=== PATIENT | female | born 1965 | race Caucasian/White ===

== ENCOUNTER 2016-05-25 11:47 | Outpatient (CLI) ==
[2016-02-01 12:28] VITALS: BMI 38.4
[2016-05-25 12:29] LABS: FLU INTERNAL QC INTERNAL QC VALID; RAPID FLU A NEGATIVE (NEGATIVE); RAPID FLU B NEGATIVE (NEGATIVE)
== END 2016-05-25 11:48 | disposition home or self-care (01) ==
LOC: LAB 11:47
PROVIDERS: ATTEND Nurse Practitioner Family
DX: J02.9 Acute pharyngitis, unspecified (principal); R50.9 Fever, unspecified; R68.83 Chills (without fever)
CPT/HCPCS: 87651; 87804; 87880

== ENCOUNTER 2016-09-04 16:38 | Outpatient (CLI) ==
[2016-02-01 12:28] VITALS: BMI 38.4
== END 2016-09-04 16:39 | disposition home or self-care (01) ==
LOC: AMBL 16:38
PROVIDERS: ATTEND Internal Medicine
DX: I10 Essential (primary) hypertension (principal); R53.1 Weakness; R51 Headache; H53.8 Other visual disturbances

== ENCOUNTER 2016-12-07 08:38 | Outpatient (CLI) ==
[2016-02-01 12:28] VITALS: BMI 38.4
[2016-12-07 08:57] LABS: BASOPHILS % (AUTO) 0.6 % (0.0-3.0); EOSINOPHILS # (AUTO) 0.1 K/ul (0.0-0.7); EOSINOPHILS % (AUTO) 1.3 % (0.0-7.0); HEMATOCRIT 38.9 % (37.0-47.0); HEMOGLOBIN 13.4 g/dl (12.0-16.0); IMMATURE GRANULOCYTE % (AUTO) 0.2 % (0.0-5.0); LYMPHOCYTES # (AUTO) 2.1 K/uL (0.60-3.4); LYMPHOCYTES % (AUTO) 39.1 (10.0-50.0); MEAN CORPUSCULAR HEMOGLOBIN 32.8 pg (27.0-31.0); MEAN CORPUSCULAR HGB CONC 34.4 (31.8-35.4); MEAN CORPUSCULAR VOLUME 95.1 fl (81.0-99.0); MONOCYTES # (AUTO) 0.5 K/uL (0.4-2.0); MONOCYTES % (AUTO) 9.6 (0-10); NEUTROPHILS # (AUTO) 2.6 K/ul (2.0-6.9); NEUTROPHILS % (AUTO) 49.2; PLATELET COUNT 200 10^3/uL (140-440); RED BLOOD COUNT 4.09 10^6/ul (4.20-5.40); WHITE BLOOD COUNT 5.29 K/ul (4.6-10.2)
[2016-12-07 09:40] LABS: ALBUMIN 3.7 g/dL (3.4-5.0); ALBUMIN/GLOBULIN RATIO 1.06; BILIRUBIN,TOTAL 0.62 mg/dL (0.00-1.20); BUN/CREATININE RATIO 13.04; CALCIUM 9.4 mg/dL (8.2-10.2); CHOL/HDL RATIO 4.6 (4.5-5.5); CREATININE 0.69 mg/dL (0.60-1.30); TOTAL PROTEIN 7.2 g/dL (6.4-8.2)
== END 2016-12-07 08:39 | disposition home or self-care (01) ==
LOC: LAB 08:38
PROVIDERS: ATTEND Nurse Practitioner Family
DX: I10 Essential (primary) hypertension (principal); E78.5 Hyperlipidemia, unspecified; E03.9 Hypothyroidism, unspecified
CPT/HCPCS: 36415; 80053; 80061; 84443; 85025

== ENCOUNTER 2016-12-10 15:25 | Outpatient (CLI) ==
[2016-02-01 12:28] VITALS: BMI 38.4
[2016-12-11 07:18] LABS: C-REACTIVE PROTEIN 0.9 mg/L (0.0-4.9); RHEUMATOID ARTHRITIS FACTOR < 10.0 IU/mL (0.0-13.9)
[2016-12-11 13:15] LABS: ANTI-NUCLEAR ANTIBODY SCREEN Positive (Negative)
== END 2016-12-10 15:26 | disposition home or self-care (01) ==
LOC: LAB 15:25
PROVIDERS: ATTEND Nurse Practitioner Family
DX: M25.50 Pain in unspecified joint (principal)
CPT/HCPCS: 36415; 86038; 86140; 86430

== ENCOUNTER 2016-12-31 13:03 | Outpatient (CLI) ==
[2016-02-01 12:28] VITALS: BMI 38.4
--- NOTE | 2016-12-31 13:31 | DI ---
EXAM: RIGHT ELBOW HISTORY: Right elbow pain FINDINGS: Right elbow three-view. Bone and joint structures appear normal. There is no joint dislo cation or effusion. No fracture is identified. Bone density and soft tissues are within normal limi ts. IMPRESSION: Findings within normal limits.
--- NOTE | 2016-12-31 14:15 | DI ---
Exam: Two x-rays of the thoracic spine. Comparison: Two-view chest x-ray performed on 05/03/2014. Reason for exam: Pain in thoracic spine. FINDINGS: No obvious fracture or listhesis. Multilevel degenerative disease is seen with anterior o steophyte formation. There is a normal appearing thoracic kyphotic curve. Impression: 1. No acute fracture or listhesis in the thoracic spine. 2. Multilevel degenerative disease with intervertebral body disc space height narrowing and osteophy te formation
== END 2016-12-31 13:04 | disposition home or self-care (01) ==
LOC: RAD 13:03
PROVIDERS: ATTEND Nurse Practitioner Family
DX: M25.521 Pain in right elbow (principal); S59.901A Unspecified injury of right elbow, initial encounter; M54.6 Pain in thoracic spine; I10 Essential (primary) hypertension; R07.9 Chest pain, unspecified
CPT/HCPCS: 93005; 93010

== ENCOUNTER 2017-01-03 12:14 | Outpatient (CLI) ==
[2016-02-01 12:28] VITALS: BMI 38.4
--- NOTE | 2017-01-04 05:50 | MRI ---
EXAM: MRI thoracic spine without IV contrast. DATE: 01/03/2017. HISTORY: Thoracic spine degenerative disc disease. Right lower back and right-sided pain. TECHNIQUE: Sagittal and axial T1W and T2W sequences of the thoracic spine along with sagittal IR and coronal T2W sequences were obtained using 1.2 Mary magnet. No IV contrast. COMPARISON: T-spine series 01/10/2017. FINDINGS: There are 12 thoracic vertebra with paired ribs. No thoracic scoliosis is evident. No ac [place] T-spine fracture, subluxation, osseous malignancy, or jumped facet is demonstrated. Thoracic rosangela tebra are normal in height. Bone marrow signal is normal. Tiny osteophytes are seen at several mid thoracic vertebra. Intervertebral discs are normal in height. Conus medullaris appears to terminate near L2. No cord edema, syrinx, myelomalacia, or neoplasm is demonstrated. No thyroid abnormality is detected. Trachea, mainstem bronchi, thoracic esophagus and thoracic aorta are unremarkable. No mediastinal lymphadenopathy, hilar lymphadenopathy, pneumonia, lung mass, or p leural effusion is demonstrated. Visible portions of the liver, gallbladder, spleen, adrenal glands, and kidneys reveal no malignancy. Segmental analysis: C5-6: Sagittal images demonstrate small posterior disc/osteophyte complex flattening the cord anteri gris and causing moderate central canal stenosis. C6-7: Minor posterior disc bulge does not cause cord compression or central stenosis. C7-T1: Normal. T1-2: Normal. T2-3: Normal. T3-4: Normal. T4-5: Normal, except for minor right frontal narrowing due to mild right facet arthropathy. T5-6: Normal. T6-7: Small left paracentral disc protrusion (1.8 mm AP by 8 mm transverse) does not contact the cor d at rest; however, the cord is slightly flattened anteriorly. Canal is 10.8 mm AP. Each foramen is patent. T7-8: Minimal posterior disc bulge does not cause cord compression, central stenosis or foraminal st enosis. T8-9: Normal, no disc protrusion or central stenosis. Mild right foraminal stenosis due to mild rig ht facet arthropathy. T9-10: Normal. T10-11: Normal. T11-12: Normal. T12-L1: Normal. IMPRESSIONS: 1. T-spine minor spondylosis, mild facet arthropathy, and minor DDD. 2. Slight cord flattening at T6-7. No syrinx or myelomalacia. 3. No thoracic spine central canal stenosis. 4. Mild foraminal stenoses at T4-5 and T8-9. 5. Moderate central canal stenosis at C5-6.
== END 2017-01-03 12:15 | disposition home or self-care (01) ==
LOC: RAD 12:14
PROVIDERS: ATTEND Nurse Practitioner Family
DX: M51.34 Other intervertebral disc degeneration, thoracic region (principal); M25.70 Osteophyte, unspecified joint

== ENCOUNTER 2017-01-15 09:57 | Outpatient (CLI) ==
[2016-02-01 12:28] VITALS: BMI 38.4
[2017-01-15 12:13] LABS: ERYTHROCYTE SEDIMENTATION RATE 10 mm/hr (0-20); ESR INTERNAL QC INTERNAL QC VALID
[2017-01-16 06:12] LABS: C-REACTIVE PROTEIN 0.9 mg/L (0.0-4.9)
[2017-01-16 15:26] LABS: ANTI-DNA (DS) AB QN 13 IU/mL (0-9)
== END 2017-01-15 09:58 | disposition home or self-care (01) ==
LOC: LAB 09:57
PROVIDERS: ATTEND Internal Medicine Rheumatology
DX: M79.7 Fibromyalgia (principal); I10 Essential (primary) hypertension; R76.8 Other specified abnormal immunological findings in serum
CPT/HCPCS: 36415; 82306; 85651; 86038; 86140

== ENCOUNTER 2017-01-15 16:49 | Emergency (ER) ==
[2017-01-15 17:01] VITALS: BP 213/136; TEMP 98.5; BMI 37.1
[2017-01-15] MEDS ORDERED: TRANDATE IVP STA ×2 (17:06→17:17)
[2017-01-15 17:21] LABS: BASOPHILS % (AUTO) 0.5 % (0.0-3.0); EOSINOPHILS # (AUTO) 0.1 K/ul (0.0-0.7); EOSINOPHILS % (AUTO) 1.8 % (0.0-7.0); HEMOGLOBIN 13.9 g/dl (12.0-16.0); IMMATURE GRANULOCYTE % (AUTO) 0.3 % (0.0-5.0); LYMPHOCYTES % (AUTO) 48.9 (10.0-50.0); MEAN CORPUSCULAR HEMOGLOBIN 33.2 pg (27.0-31.0); MEAN CORPUSCULAR HGB CONC 35.6 (31.8-35.4); MEAN CORPUSCULAR VOLUME 93.1 fl (81.0-99.0); MONOCYTES # (AUTO) 0.7 K/uL (0.4-2.0); MONOCYTES % (AUTO) 11.2 (0-10); NEUTROPHILS # (AUTO) 2.3 K/ul (2.0-6.9); NEUTROPHILS % (AUTO) 37.3; PLATELET COUNT 233 10^3/uL (140-440); RED BLOOD COUNT 4.19 10^6/ul (4.20-5.40); WHITE BLOOD COUNT 6.05 K/ul (4.6-10.2)
[2017-01-15 17:42] LABS: ALANINE AMINOTRANSFERASE 26 U/L (12-78); ALBUMIN 4.5 g/dL (3.4-5.0); ALBUMIN/GLOBULIN RATIO 1.13; ALKALINE PHOSPHATASE 133 U/L (42-98); ANION GAP 16.9; ASPARTATE AMINO TRANSFERASE 26 U/L (15-37); BILIRUBIN,TOTAL 0.49 mg/dL (0.00-1.20); BLOOD UREA NITROGEN 10 mg/dL (7-18); BUN/CREATININE RATIO 13.69; CALCIUM 9.8 mg/dL (8.2-10.2); CARBON DIOXIDE 25 mmol/L (21-32); CHLORIDE 103 mmol/L (98-107); CREATININE 0.73 mg/dL (0.60-1.30); GLUCOSE 90 mg/dL (70-110); POTASSIUM 3.9 mmol/L (3.5-5.10); SODIUM 141 mmol/L (136-145); TOTAL PROTEIN 8.5 g/dL (6.4-8.2)
[2017-01-15 18:05] LABS: BILIRUBIN,URINE Negative (NEGATIVE); KETONES,URINE Negative (NEGATIVE); LEUKOCYTE ESTERASE ,URINE Negative (NEGATIVE); NITRITE,URINE Negative (NEGATIVE); PROTEIN,URINE Negative (NEGATIVE); URINE, BLOOD 2+ (NEGATIVE)
[2017-01-15 18:08] LABS: ADD URINE MICROSCOPIC YES
[2017-01-15 18:09] LABS: BACTERIA,URINE TRACE (NOT PRESENT)
--- NOTE | 2017-01-15 18:12 | ED.PDOC ---
General ED Provider: Dr. SANTOS WOOD Chief Complaint: Hypertension Stated Complaint: hypertension Time Seen by Physician: 17:00 (seen with ophelia and then with oli ) Mode of Arrival: Walk-In Information Source: Patient Exam Limitations: No limitations Primary Care Provider: EMILIANO TONG Nursing and Triage Documentation Reviewed and Agree: Yes Cardiovascular Complaint Exam - Hypertension Complaint/Exam Onset/Duration: today Symptoms Are: Still present Timing: Constant Reported B/P Prior to Arrival: 200/100 Aggravating: Reports: None Alleviating: Reports: None Associated Signs and Symptoms: Denies: Chest pain, Vision changes, Anxiety, Recent stress, Headache, Numbness, Tingling, Weakness, Dizziness, Short of air, Swelling Related History: Reports: Similar episode, Current [place] Inhibitors Related Surgical History: Reports: None Cardiac Risk Factors: Reports: Hypertension Recent Change in Medications: No A/V [place]: No Papilledema Present: No JVD Present: No Carotid Bruit Present: No Femoral Pulses Bounding: No Differential Diagnoses: Hypertension, Renal Disease Quality Indicator For Non-Traumatic Chest Pain/Syncope: EKG Performed Review of Systems - Review Of Systems Constitutional: Reports: No symptoms Eyes: Reports: No symptoms Ears, Nose, Mouth, Throat: Reports: No symptoms Respiratory: Reports: No symptoms Cardiac: Reports: No symptoms GI: Reports: No symptoms : Reports: No symptoms Musculoskeletal: Reports: No symptoms Skin: Reports: No symptoms Neurological: Reports: No symptoms Endocrine: Reports: No symptoms Hematologic/Lymphatic: Reports: No symptoms All Other Systems: Reviewed and Negative Past Medical History - Past Medical History Previously Healthy: No Endocrine: Reports: Hypothyroid Cardiovascular: Reports: Hypertension Respiratory: Reports: None Hematological: Reports: None Gastrointestinal: Reports: None Genitourinary: Reports: None Neuro/Psych: Reports: None Musculoskeletal: Reports: None Cancer: Reports: None Last Menstrual Period: last week - Surgical History General Surgical History: Reports: None - Family History Family History: Reports: None - Social History Smoking Status: Never smoker Hx Substance Use: No Alcohol Screening: None Physical Exam - Physical Exam Appearance: Well-appearing, No pain distress, Well-nourished Eyes: HAIR, EOMI, Conjunctiva clear ENT: Ears normal, Nose normal, Oropharynx normal Respiratory: Airway patent, Breath sounds clear, Breath sounds equal, Respirations nonlabored Cardiovascular: RRR, Pulses normal, No rub, No murmur GI/: Soft, Nontender, No masses, Bowel sounds normal, No Organomegaly Musculoskeletal: Normal strength, ROM intact, No edema, No calf tenderness Skin: Warm, Dry, Normal color Neurological: Sensation intact, Motor intact, Reflexes intact, Cranial nerves intact, Alert, Oriented Psychiatric: Affect appropriate, Mood appropriate Critical Care Note - Critical Care Note Total Time (mins): 0 Course - Course Hematology/Chemistry: 01/15/17 17:10 01/15/17 17:10 Orders, Labs, Meds: Lab Review 01/15/17 01/15/17 01/15/17 17:10 17:10 17:55 WBC 6.05 RBC 4.19 L Hgb 13.9 Hct 39.0 MCV 93.1 MCH 33.2 H MCHC 35.6 H RDW Coeff of Juan 11.9 Plt Count 233 Immature Gran % (Auto) 0.3 Neut % (Auto) 37.3 Lymph % (Auto) 48.9 [place] % (Auto) 11.2 H Eos % (Auto) 1.8 Baso % (Auto) 0.5 Immature Gran # (Auto) 0.0 Neut # 2.3 Lymph # 3.0 [place] # 0.7 Eos # 0.1 Baso # 0.0 Sodium 141 Potassium 3.9 Chloride 103 Carbon Dioxide 25 Anion Gap 16.9 BUN 10 Creatinine 0.73 Estimated GFR (MDRD) 84.00 BUN/Creatinine Ratio 13.69 Glucose 90 Calcium 9.8 Total Bilirubin 0.49 AST 26 ALT 26 Alkaline Phosphatase 133 H Troponin I < 0.0100 Total Protein 8.5 H Albumin 4.5 Globulin 4.0 Albumin/Globulin Ratio 1.13 Urine Color Yellow Urine Clarity Clear Urine pH 6.0 Ur Specific [place] <=1.005 Urine Protein Negative Urine Glucose (UA) Negative Urine Ketones Negative Urine Blood 2+ Urine Nitrite Negative Urine Bilirubin Negative Urine Urobilinogen 0.2 Ur Leukocyte Esterase Negative Urine Microscopic RBC 0-2 Urine Microscopic WBC 0-2 Ur Squamous Epith Cells 0-2 Urine Bacteria Trace Orders Category Date Time Status EKG-(ED ONLY) Stat CARDIO 01/15/17 17:15 Completed ED IV/MEDIPORT/POWERPORT .ONCE EMERGENCY 01/15/17 17:06 Ordered CBC W/ AUTO DIFF Stat LAB 01/15/17 17:06 Ordered COMPREHENSIVE METABOLIC PANEL Stat LAB 01/15/17 17:06 Ordered TROPONIN I Stat LAB 01/15/17 17:06 Ordered URINALYSIS C & S IF INDICATED Stat LAB 01/15/17 17:06 Uncollected 0.9 % Sodium Chloride [Saline Flush] MEDS 01/15/17 17:06 Ordered 1 syr IVF PRN PRN Labetalol HCl [Trandate] MEDS 01/15/17 17:17 Discontinued 10 mg IVP ONCE STA Medications Generic Name Dose Route Start Last Admin Trade Name Freq PRN Reason Stop Dose Admin Sodium Chloride 1 syr 01/15/17 17:06 Saline Flush IVF PRN PRN To flush IV Discontinued Medications Generic Name Dose Route Start Last Admin Trade Name Freq PRN Reason Stop Dose Admin Labetalol HCl 10 mg 01/15/17 17:17 Trandate IVP 01/15/17 17:18 ONCE STA Vital Signs: Temp Pulse Resp BP Pulse Ox 01/15/17 16:52 98.5 F 88 20 213/136 H 98 HERBERT Risk Score HERBERT Risk Score: Risk Score Odds of by 30D 0 0.1 (0.1-0.2) 1 0.3 (0.2-0.3) 2 0.4 (0.3-0.5) 3 0.7 (0.6-0.9) 4 1.2 (1.0-1.5) 5 2.2 (1.9-2.6) 6 3.0 (2.5-3.6) 7 4.8 (3.8-6.1) Departure - Departure Time of Disposition: 18:12 Disposition: HOME SELF-CARE Discharge Problem: Hematuria Hypertension Qualifiers: Hypertension type: unspecified Qualified Code(s): I10 - Essential (primary) hypertension Instructions: Hematuria (ED), Hypertension (ED) Condition: Good Pt referred to PMD for follow-up: Yes Additional Instructions: Please call your Family Physician as soon as possible to schedule a follow-up appointment. you have very small amount of blood in your urine. there should be no blood you must have repeat urine analysis as soon as possible SEE YOUR DOCTOR Allergies/Adverse Reactions: Allergies No Known Allergies Allergy (Verified 01/15/17 16:57) Home Medications: Ambulatory Orders Lisinopril 20 mg PO BID 01/15/17 Disposition Discussed With: Patient
== END 2017-01-15 18:18 | disposition home or self-care (01) ==
LOC: ED 16:49
DX: I10 Essential (primary) hypertension (principal); R31.9 Hematuria, unspecified; E03.9 Hypothyroidism, unspecified
CPT/HCPCS: 36415; 80053; 81001; 84484; 85025; 93005; 93010; 99283

== ENCOUNTER 2017-08-13 15:37 | Outpatient (CLI) | END 2017-08-13 15:38 | disposition home or self-care (01) | LOC: RHC-LAB 15:37 | PROVIDERS: ATTEND Nurse Practitioner Family | DX: E03.9 Hypothyroidism, unspecified (principal) | CPT/HCPCS: 36415; 84443 ==

== ENCOUNTER 2017-10-15 12:09 | Outpatient (CLI) | END 2017-10-15 12:10 | disposition home or self-care (01) | LOC: RHC-LAB 12:09 | PROVIDERS: ATTEND Nurse Practitioner Family | DX: E03.9 Hypothyroidism, unspecified (principal); I10 Essential (primary) hypertension; R94.6 Abnormal results of thyroid function studies | CPT/HCPCS: 36415; 80053; 80061; 84443; 85025 ==

== ENCOUNTER 2017-12-11 10:17 | Outpatient (CLI) | END 2017-12-11 10:18 | disposition home or self-care (01) | LOC: LAB 10:17 | PROVIDERS: ATTEND Nurse Practitioner Family | DX: E78.5 Hyperlipidemia, unspecified (principal); E78.1 Pure hyperglyceridemia; R53.83 Other fatigue; I10 Essential (primary) hypertension; R07.9 Chest pain, unspecified | CPT/HCPCS: 36415; 80053; 80061; 85025; 93005; 93010 ==

== ENCOUNTER 2018-05-20 10:50 | Outpatient (CLI) | END 2018-05-20 10:51 | disposition home or self-care (01) | LOC: RHC-LAB 10:50 | PROVIDERS: ATTEND Nurse Practitioner Family | DX: E78.5 Hyperlipidemia, unspecified (principal); E03.9 Hypothyroidism, unspecified | CPT/HCPCS: 36415; 80053; 80061; 84443 ==

== ENCOUNTER 2018-09-20 15:40 | Emergency (ER) ==
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
[2018-09-20] MEDS ORDERED: TORADOL IM STA (15:49)
[2018-09-20 15:52] VITALS: BP 158/88; TEMP 98.4; BMI 35.8
[2018-09-20] MEDS: TORADOL IM STA (16:05)
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
== END 2018-09-20 17:50 | disposition home or self-care (01) ==
LOC: ED 15:40
DX: S39.012A Strain of muscle, fascia and tendon of lower back, initial encounter (principal); V89.2XXA Person injured in unspecified motor-vehicle accident, traffic, initial encounter
CPT/HCPCS: 96372; 99283

== ENCOUNTER 2018-11-14 08:03 | Outpatient (CLI) | END 2018-11-14 08:04 | disposition home or self-care (01) | LOC: RHC-LAB 08:03 | PROVIDERS: ATTEND Nurse Practitioner Family | DX: E03.9 Hypothyroidism, unspecified (principal); I10 Essential (primary) hypertension; E78.5 Hyperlipidemia, unspecified | CPT/HCPCS: 36415; 80053; 80061; 84443; 85025 ==

== ENCOUNTER 2022-07-18 18:19 | Observation (INO) ==
--- NOTE | 2022-07-18 18:26 | ED.PDOC ---
General ED Provider: Dr. VIKTORIYA CALZADA MD Chief Complaint: Back Pain Stated Complaint: Patient presents with RUQ and right flank pain for 12 hours. The pain is constant and sharp. It does not radiate. Denies fever, chills, nausea, emesis, melena, diarrhea, constipation or urinary tract symptoms. Time Seen by Provider: 07/18/22 18:26 Primary Care Provider: ANDREA PIERCE MD Nursing and Triage Documentation Reviewed and Agree: Yes Does patient meet sepsis criteria?: No System Inflammatory Response Syndrome: Not Applicable Sepsis Protocol: For patient's 13 years and over: Temp is 96.8 and below OR 101 and greater Pulse >90 BPM Resp >20/minute Acutely Altered Mental Status Are patient's symptoms suggestive of a new infection, such as: -Pneumonia -Skin, Soft Tissue -Endocarditis -UTI -Bone, Joint Infection -Implantable Device -Acute Abdominal Infection -Wound Infection -Meningitis -Blood Stream Catheter Infection -Unknown Review of Systems Review Of Systems Constitutional: Reports No symptoms Eyes: Reports No symptoms Ears, Nose, Mouth, Throat: Reports No symptoms Respiratory: Reports No symptoms Cardiac: Reports No symptoms GI: Reports Abdominal pain : Reports No symptoms Musculoskeletal: Reports No symptoms Skin: Reports No symptoms Neurological: Reports No symptoms Endocrine: Reports No symptoms Hematologic/Lymphatic: Reports No symptoms All Other Systems: Reviewed and Negative [facility] Medical History Acute rheumatic arthritis Bursitis of hip (~2013) Fibromyalgia Hypertension Hypothyroidism Intermittent chest pain Numbness and tingling Obesity Screening for malignant neoplasm of colon Sleep apnea in adult Uncontrolled hypertension Family History FATHER Lung cancer Mother No problems noted. Other Diabetes Osteoarthritis Social History Smoking and tobacco status: Never smoker Passive smoking exposure: No Second hand smoke exposure: No Smoking risk assessment performed: No Alcohol intake: current Alcohol intake frequency: holidays/special occasions only Counseling given: No Substance use type: does not use Counseling given: No Counseling provided: none Household members: spouse and family Housing: house Marital status: M Lives independently: Yes Current occupational status: employed Current occupational exposures/hazards: No Pets and animals: No History of recent travel: No Do you think of yourself as: straight/heterosexual Current gender identity: female Seatbelt use: always Helmet use: No Drives 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 Water heater temperature set < 120 degrees: Yes Working smoke detector in home: Yes Fire extinguisher in home: Yes Carbon monoxide detector in home: Yes Surgical History History of section History of gynecological procedure Female Reproductive History Menstrual Hx Hysterectomy: No Hx Tubal Ligation: No Physical Exam Physical Exam Appearance: Reports Ill-appearing, Well-nourished and Obese Ill-appearing: Mild Pain Distress: Moderate Eyes: Reports Conjunctiva clear ENT: Reports Nose normal and Oropharynx normal Neck: Supple Respiratory: Reports Airway patent, Breath sounds clear and Breath sounds equal Cardiovascular: Reports RRR, No rub and No murmur GI/: Reports Soft, No masses, Bowel sounds normal, No Organomegaly and Tender (Mild to moderate tenderness RUQ without peritoneal signs.) Musculoskeletal: Reports Normal strength and No edema Skin: Reports Warm, Dry and Normal color Neurological: Reports Alert and Oriented Psychiatric: Reports Affect appropriate and Mood appropriate Interpretation Radiology Interpretation Radiology Interpretation By: Radiologist Exam Interpreted: CT Scan (no acute intraabdominal process, hepatic steatosis, no gallstones identified) Re-Evaluation Re-Evaluation Time of Re-Evaluation: 20:48 Status: Unchanged Vital Signs Stable: Yes Pain Level: pain persists Critical Care Note Critical Care Note Total Critical Care Time (mins): 0 Course Course 07/18/22 18:57 07/18/22 18:57 Orders, Labs, Meds: Lab Review 07/18/22 07/18/22 18:57 20:05 WBC 6.37 RBC 3.97 L Hgb 12.9 Hct 38.6 MCV 97.2 MCH 32.5 H MCHC 33.4 RDW Coeff of Juan 11.9 Plt Count 208 Immature Gran % (Auto) 0.5 Neut % (Auto) 54.1 Lymph % (Auto) 34.1 [place] % (Auto) 9.4 Eos % (Auto) 1.4 Baso % (Auto) 0.5 Neut # (Auto) 3.5 Lymph # (Auto) 2.2 [place] # (Auto) 0.6 Eos # (Auto) 0.1 Baso # (Auto) 0.0 Immature Gran # (Auto) 0.0 Sodium 141.0 Potassium 3.68 Chloride 104.4 Carbon Dioxide 31.7 H Anion Gap 8.58 BUN 20.5 H Creatinine 0.78 Estimated GFR (MDRD) 77.00 BUN/Creatinine Ratio 26.28 Glucose 146.9 H Calcium 8.98 Total Bilirubin 0.49 AST 33.3 ALT 29.9 Alkaline Phosphatase 135.2 H Total Protein 7.80 Albumin 4.59 Globulin 3.21 Albumin/Globulin Ratio 1.42 Lipase 106.2 Urine Color Yellow Urine Clarity Clear Urine pH 7.0 Ur Specific [place] 1.020 Urine Protein Negative Urine Glucose (UA) Negative Urine Ketones Negative Urine Blood Negative Urine Nitrite Negative Urine Bilirubin Negative Urine Urobilinogen 4.0 H Ur Leukocyte Esterase Negative Orders Category Date Time Status NPO REMINDER: IMAGING ONCE CARE 07/18/22 18:50 Completed [place] [ED IV/MEDIPORT/POWERPORT] .ONCE EMERGENCY 07/18/22 18:49 Active CBC W/ AUTO DIFF Stat LAB 07/18/22 18:57 Completed CMP [COMPREHENSIVE METABOLIC PANEL] Stat LAB 07/18/22 18:57 Completed LIPASE Stat LAB 07/18/22 18:57 Completed URINALYSIS C & S IF INDICATED Stat LAB 07/18/22 20:05 Completed 0.9 % Sodium Chloride [Saline Flush] MEDS 07/18/22 18:49 Active 1 syr IVF PRN PRN Ketorolac Tromethamine [Toradol] MEDS 07/18/22 18:49 Discontinued 30 mg IVP ONCE STA Sodium Chloride 0.9% [Sodium Chloride] 1,000 ml MEDS 07/18/22 18:[address] ABDOMEN/PELVIS W CONTRAST Stat RADS 07/18/22 18:49 Completed Medications Generic Name Dose Route Start Last Admin Trade Name Freq PRN Reason Stop Dose Admin Sodium Chloride 1 syr 07/18/22 18:49 07/18/22 19:02 0.9% Sodium Chloride 10 Ml Disp.Syrin IVF 1 syr PRN PRN Administration To flush IV Discontinued Medications Generic Name Dose Route Start Last Admin Trade Name Freq PRN Reason Stop Dose Admin Sodium Chloride 1,000 mls @ 1,000 mls/hr 07/18/22 18:49 07/18/22 19:01 Sodium Chloride IV 07/18/22 19:48 1,000 mls/hr BOLUS STA Administration Ketorolac Tromethamine 30 mg 07/18/22 18:49 07/18/22 19:01 Ketorolac Tromethamine 30 Mg/Ml Vial IVP 07/18/22 18:50 30 mg ONCE STA Administration Vital Signs: Temp Pulse Resp BP Pulse Ox 07/18/22 18:34 98.3 F 83 16 177/98 H 97 Discharge Plan Discharge Patient Disposition: PLACED OBSERVATION Discharge Problem: RUQ abdominal pain Did you review [place] RECORD CLERK SALESPERSON for ALL controlled substances?: Not Applicable ED Provider: VIKTORIYA CALZADA Condition: Fair Physician Progress Note: []
[2022-07-18 18:38] VITALS: BMI 35.2
[2022-07-18] MEDS ORDERED: SODIUM CHLORIDE 1,000 ML IV STA (18:49)
[2022-07-18] MEDS ORDERED: TORADOL IVP STA (18:49)
[2022-07-18 19:04] LABS: BASOPHILS % (AUTO) 0.5 % (0.0-3.0); EOSINOPHILS # (AUTO) 0.1 K/ul (0.0-0.7); EOSINOPHILS % (AUTO) 1.4 % (0.0-7.0); HEMATOCRIT 38.6 % (37.0-47.0); HEMOGLOBIN 12.9 g/dl (12.0-16.0); IMMATURE GRANULOCYTE % (AUTO) 0.5 % (0.0-5.0); LYMPHOCYTES # (AUTO) 2.2 K/uL (0.60-3.4); LYMPHOCYTES % (AUTO) 34.1 (10.0-50.0); MEAN CORPUSCULAR HEMOGLOBIN 32.5 pg (27.0-31.0); MEAN CORPUSCULAR HGB CONC 33.4 (31.8-35.4); MEAN CORPUSCULAR VOLUME 97.2 fl (81.0-99.0); MONOCYTES # (AUTO) 0.6 K/uL (0.4-2.0); MONOCYTES % (AUTO) 9.4 (0-10); NEUTROPHILS # (AUTO) 3.5 K/ul (2.0-6.9); NEUTROPHILS % (AUTO) 54.1 % (42.2-75.2); PLATELET COUNT 208 10^3/uL (140-440); RDW COEFFICIENT OF VARIATION 11.9 % (11.6-14.8); RED BLOOD COUNT 3.97 10^6/ul (4.20-5.40); WHITE BLOOD COUNT 6.37 K/ul (4.6-10.2)
[2022-07-18 19:15] LABS: ALANINE AMINOTRANSFERASE 29.9 U/L (0-35); ALBUMIN 4.59 g/dL (3.5-5.0); ALKALINE PHOSPHATASE 135.2 U/L (38-126); ASPARTATE AMINO TRANSFERASE 33.3 U/L (14-36); BILIRUBIN,TOTAL 0.49 mg/dL (0.2-1.3); BLOOD UREA NITROGEN 20.5 mg/dL (7-17); CALCIUM 8.98 mg/dL (8.4-10.2); CARBON DIOXIDE 31.7 mmol/L (22-30.0); CHLORIDE 104.4 mmol/L (98-107); CREATININE 0.78 mg/dL (0.60-1.30); GLUCOSE 146.9 mg/dL (74-106); LIPASE 106.2 U/L (23-300); POTASSIUM 3.68 mmol/L (3.5-5.1); TOTAL PROTEIN 7.8 g/dL (6.3-8.2)
[2022-07-18 20:13] LABS: BILIRUBIN,URINE Negative (NEGATIVE); CLARITY,URINE Clear (CLEAR); COLOR,URINE Yellow (YELLOW); GLUCOSE, URINE (UA) Negative (NEGATIVE); KETONES,URINE Negative (NEGATIVE); LEUKOCYTE ESTERASE ,URINE Negative (NEGATIVE); NITRITE,URINE Negative (NEGATIVE); PROTEIN,URINE Negative (NEGATIVE); URINE, BLOOD Negative (NEGATIVE)
--- NOTE | 2022-07-18 20:45 | CT ---
EXAM: CT OF THE ABDOMEN PELVIS WITH CONTRAST History: Right-sided abdominal pain and right back pain. Comparison: CT abdomen pelvis 12/17/2014 Technique: Multiplanar CT images through the abdomen pelvis were obtained following administration o f IV contrast FINDINGS: Lung bases are clear. No acute osseous abnormalities. The liver is fatty. No liver or splenic lesions. No gallstones identified. The pancreas is unremar kable. Probable duodenal diverticulum measuring about 1.5 cm. The kidneys are normal. No abdominal aortic aneurysm. No bowel obstruction. The appendix is not dilated. No bladder wall thickening. The uterus is not enlarged. No perirectal inflammation. No pathologically enlarged lymph nodes. Impression: 1. No acute intra-abdominal or pelvic process. 2. Hepatic steatosis. 3. Probable duodenal diverticulum All CT scans are performed using dose optimization techniques as appropriate to the performed exam an d include at least one of the following: Automated exposure control, adjustment of the mA and/or kV according t o size, and the use of iterative reconstruction technique.
--- NOTE | 2022-07-18 20:56 | PCM ---
Chief Complaint Chief Complaint: RUQ abdominal pain History of Present Illness History of Present Illness: Patient presents with severe RUQ abdominal pain. The pain is constant and sharp. It does not radiate. No associated symptoms, relieving factors or aggravating factors. Denies fever, chills, nausea, emesis, diarrhea. Review of Systems Constitutional: Reports No symptoms Eyes: Reports No symptoms Ears: Reports No symptoms Nose: Reports No symptoms Throat: Reports No symptoms Mouth: Reports No symptoms Respiratory: Reports No symptoms Cardiovascular: Reports No symptoms Gastrointestinal: Reports Abdominal pain Genitourinary: Reports No symptoms Neurological: Reports No symptoms Musculoskeletal: Reports No symptoms Skin: Reports No symptoms Immunology: Reports No symptoms Hematology: Reports No symptoms Endocrine: Reports No symptoms Psychiatric: Reports No symptoms Allergies Allergies Allergy/AdvReac Type Severity Reaction Status Date / Time No Known Allergies Allergy Verified 07/18/22 19:06 [facility] Medical History Acute rheumatic arthritis Bursitis of hip (~2013) Fibromyalgia Hypertension Hypothyroidism Intermittent chest pain Numbness and tingling Obesity Screening for malignant neoplasm of colon Sleep apnea in adult Uncontrolled hypertension Surgical History History of section History of gynecological procedure Family History FATHER Lung cancer Mother No problems noted. Other Diabetes Osteoarthritis Social History Smoking and tobacco status: Never smoker Passive smoking exposure: No Second hand smoke exposure: No Smoking risk assessment performed: No Alcohol intake: current Alcohol intake frequency: holidays/special occasions only Counseling given: No Substance use type: does not use Counseling given: No Counseling provided: none Household members: spouse and family Housing: house Marital status: M Lives independently: Yes Current occupational status: employed Current occupational exposures/hazards: No Pets and animals: No History of recent travel: No Do you think of yourself as: straight/heterosexual Current gender identity: female Seatbelt use: always Helmet use: No Drives intoxicated or rides with intoxicated local delivery driver: No Water heater temperature set < 120 degrees: Yes Working smoke detector in home: Yes Fire extinguisher in home: Yes Carbon monoxide detector in home: Yes Medications Medications: Medications Generic Name Dose Route Start Last Admin Trade Name Freq PRN Reason Stop Dose Admin Sodium Chloride 1 syr 07/18/22 18:49 07/18/22 19:02 0.9% Sodium Chloride 10 Ml Disp.Syrin IVF 1 syr PRN PRN Administration To flush IV Body Composition Height: 5 ft 2 in Weight: 87.271 kg Body Mass Index (BMI): 35.2 Vital Signs Temperature: 98.3 F Pulse Rate: 83 Respiratory Rate: 16 Blood Pressure: 177/98 O2 Sat by Pulse Oximetry: 97 Physical Examination Appearance: Reports Well-nourished and Obese Ill-appearing: Mild Pain Distress: Moderate Eyes: Reports Conjunctiva clear ENT: Reports Nose normal and Oropharynx normal Neck: Supple Respiratory: Reports Airway patent, Breath sounds clear and Breath sounds equal Cardiovascular: Reports RRR, No rub and No murmur GI/: Reports Soft, No masses, Bowel sounds normal, No Organomegaly and Tender (Moderate RUQ tenderness with some voluntary guarding. No peritoneal signs. No CVA tenderness.) Musculoskeletal: Reports Normal strength, ROM intact and No edema Skin: Reports Warm, Dry and Normal color Neurological: Reports Alert and Oriented Psychiatric: Reports Affect appropriate and Mood appropriate Lab/Tests/Diagnostic Imaging Lab/Tests/Diagnostic Imaging: Lab Review 07/18/22 07/18/22 18:57 20:05 WBC 6.37 RBC 3.97 L Hgb 12.9 Hct 38.6 MCV 97.2 MCH 32.5 H MCHC 33.4 RDW Coeff of Juan 11.9 Plt Count 208 Immature Gran % (Auto) 0.5 Neut % (Auto) 54.1 Lymph % (Auto) 34.1 Winn % (Auto) 9.4 Eos % (Auto) 1.4 Baso % (Auto) 0.5 Neut # (Auto) 3.5 Lymph # (Auto) 2.2 Winn # (Auto) 0.6 Eos # (Auto) 0.1 Baso # (Auto) 0.0 Immature Gran # (Auto) 0.0 Sodium 141.0 Potassium 3.68 Chloride 104.4 Carbon Dioxide 31.7 H Anion Gap 8.58 BUN 20.5 H Creatinine 0.78 Estimated GFR (MDRD) 77.00 BUN/Creatinine Ratio 26.28 Glucose 146.9 H Calcium 8.98 Total Bilirubin 0.49 AST 33.3 ALT 29.9 Alkaline Phosphatase 135.2 H Total Protein 7.80 Albumin 4.59 Globulin 3.21 Albumin/Globulin Ratio 1.42 Lipase 106.2 Urine Color Yellow Urine Clarity Clear Urine pH 7.0 Ur Specific [place] 1.020 Urine Protein Negative Urine Glucose (UA) Negative Urine Ketones Negative Urine Blood Negative Urine Nitrite Negative Urine Bilirubin Negative Urine Urobilinogen 4.0 H Ur Leukocyte Esterase Negative Orders Category Date Time Status NPO REMINDER: IMAGING ONCE CARE 07/18/22 18:50 Completed Saline Lock [ED IV/MEDIPORT/POWERPORT] .ONCE EMERGENCY 07/18/22 18:49 Active CBC W/ AUTO DIFF Stat LAB 07/18/22 18:57 Completed CMP [COMPREHENSIVE METABOLIC PANEL] Stat LAB 07/18/22 18:57 Completed COVID [SARS COV-2 RNA RAPID YEIMY] Stat LAB 07/18/22 Ordered LIPASE Stat LAB 07/18/22 18:57 Completed URINALYSIS C & S IF INDICATED Stat LAB 07/18/22 20:05 Completed 0.9 % Sodium Chloride [Saline Flush] MEDS 07/18/22 18:49 Active 1 syr IVF PRN PRN Ketorolac Tromethamine [Toradol] MEDS 07/18/22 18:49 Discontinued 30 mg IVP ONCE STA Sodium Chloride 0.9% [Sodium Chloride] 1,000 ml MEDS 07/18/22 18:[address] ABDOMEN/PELVIS W CONTRAST Stat RADS 07/18/22 18:49 Completed Medications Generic Name Dose Route Start Last Admin Trade Name Freq PRN Reason Stop Dose Admin Sodium Chloride 1 syr 07/18/22 18:49 07/18/22 19:02 0.9% Sodium Chloride 10 Ml Disp.Syrin IVF 1 syr PRN PRN Administration To flush IV Discontinued Medications Generic Name Dose Route Start Last Admin Trade Name Freq PRN Reason Stop Dose Admin Sodium Chloride 1,000 mls @ 1,000 mls/hr 07/18/22 18:49 07/18/22 19:01 Sodium Chloride IV 07/18/22 19:48 1,000 mls/hr BOLUS STA Administration Ketorolac Tromethamine 30 mg 07/18/22 18:49 07/18/22 19:01 Ketorolac Tromethamine 30 Mg/Ml Vial IVP 07/18/22 18:50 30 mg ONCE STA Administration Assessment (1) RUQ abdominal pain: Status: Acute Code(s): R10.11 - Right upper quadrant pain SNOMED Code(s): 548661673 Plan Plan: Patient will receive IV fluids and analgesia. She will undergo gallbladder ultrasound in the morning.
[2022-07-18] MEDS ORDERED: ZOFRAN 4 MG/2 ML IVP PRN (20:59)
[2022-07-18] MEDS ORDERED: TYLENOL PO PRN (20:59)
[2022-07-18] MEDS: SODIUM CHLORIDE 1,000 ML IV SCH (21:20)
[2022-07-18 21:32] LABS: SARS COV-2 RNA RAPID NAAT NEGATIVE (NEGATIVE)
[2022-07-18] MEDS: MORPHINE 4 MG/ML SYRINGE IVP PRN (21:44)
[2022-07-19] MEDS: MORPHINE 4 MG/ML SYRINGE IVP PRN ×4 (02:50→20:54)
[2022-07-19] MEDS: SODIUM CHLORIDE 1,000 ML IV SCH ×3 (05:05→20:57)
[2022-07-19 05:23] LABS: BASOPHILS % (AUTO) 0.6 % (0.0-3.0); EOSINOPHILS # (AUTO) 0.1 K/ul (0.0-0.7); EOSINOPHILS % (AUTO) 1.8 % (0.0-7.0); HEMATOCRIT 34.8 % (37.0-47.0); IMMATURE GRANULOCYTE % (AUTO) 0.2 % (0.0-5.0); LYMPHOCYTES # (AUTO) 2.3 K/uL (0.60-3.4); LYMPHOCYTES % (AUTO) 47.7 (10.0-50.0); MEAN CORPUSCULAR HEMOGLOBIN 32.8 pg (27.0-31.0); MEAN CORPUSCULAR HGB CONC 34.5 (31.8-35.4); MEAN CORPUSCULAR VOLUME 95.1 fl (81.0-99.0); MONOCYTES # (AUTO) 0.6 K/uL (0.4-2.0); MONOCYTES % (AUTO) 11.5 (0-10); NEUTROPHILS # (AUTO) 1.9 K/ul (2.0-6.9); NEUTROPHILS % (AUTO) 38.2 % (42.2-75.2); PLATELET COUNT 201 10^3/uL (140-440); RDW COEFFICIENT OF VARIATION 11.9 % (11.6-14.8); RED BLOOD COUNT 3.66 10^6/ul (4.20-5.40); WHITE BLOOD COUNT 4.88 K/ul (4.6-10.2)
[2022-07-19 05:40] LABS: ALANINE AMINOTRANSFERASE 25.1 U/L (0-35); ALBUMIN 3.9 g/dL (3.5-5.0); ALKALINE PHOSPHATASE 115.2 U/L (38-126); ASPARTATE AMINO TRANSFERASE 29.6 U/L (14-36); BILIRUBIN,TOTAL 0.52 mg/dL (0.2-1.3); BLOOD UREA NITROGEN 16.4 mg/dL (7-17); CALCIUM 8.31 mg/dL (8.4-10.2); CARBON DIOXIDE 31.6 mmol/L (22-30.0); CREATININE 0.67 mg/dL (0.60-1.30); GLUCOSE 94.4 mg/dL (74-106); POTASSIUM 4.03 mmol/L (3.5-5.1); SODIUM 138.4 mmol/L (134.5-145); TOTAL PROTEIN 6.87 g/dL (6.3-8.2)
[2022-07-19] MEDS ORDERED: ZESTRIL PO SCH (09:00)
--- NOTE | 2022-07-19 09:03 | US ---
EXAM: RIGHT UPPER QUADRANT ULTRASOUND HISTORY: Right upper quadrant abdominal pain. TECHNIQUE: Patiño scale and color Doppler imaging of the right upper quadrant of the abdomen was perfor med. FINDINGS: Pancreas: Unremarkable. Tail is partially obscured. Liver: Normal size and normal echogenicity. No focal lesion. Main portal vein: Normal antegrade flow. Gallbladder: not dilated. The wall is normal. Gallstones are not present. No pericholecystic fluid . Negative sonographic Posey's sign. Biliary: Common bile duct measures 5.6 mm. No duct dilation. Right Kidney: Normal in size. An IVC: Patent on color Doppler.No abnormality on heard scale imaging. Other: No ascites. IMPRESSION: 1. No acute abnormalities are seen within the right upper quadrant of the abdomen.
[2022-07-19] MEDS: CHLORTHALIDONE PO SCH (10:16)
[2022-07-19] MEDS: CYMBALTA PO SCH (10:17)
[2022-07-19] MEDS: ZESTRIL PO SCH (10:21)
--- NOTE | 2022-07-19 14:38 | DI ---
EXAM: CHEST RADIOGRAPH TECHNIQUE: Two views. Frontal and lateral. HISTORY: Right upper quadrant pain, mid back pain COMPARISON: 05/03/2014 FINDINGS: The lungs are clear. The heart size is normal. Osseaous structures are unremarkable IMPRESSION: 1. Normal Exam.
--- NOTE | 2022-07-19 15:24 | PCM.PROG ---
Date Seen by Provider: 07/19/22 Time Seen by Provider: 15:22 Subjective: dx. abdominal pain Objective: Vitals: T=97.8 F, P=49, R=18, LD=222/75, SPO2=93 HEENT: []conjunctiva clear Neck: []supple Lungs: [] no respiratory distress CVS: []rrr Abdomen: []nondistended Extremities: [] Neurological: []alert Skin: []normal color Lab/Tests/Diagnostic Imaging: []ct abd and u/s abd per Rad nap, u/a no infection (1) RUQ abdominal pain: Status: Acute Code(s): R10.11 - Right upper quadrant pain SNOMED Code(s): 362320987 Plan: check ddimer, cxr troponin and ekg
--- NOTE | 2022-07-19 20:58 | CT ---
EXAM: CT ANGIOGRAPHY CHEST (PE PROTOCOL) HISTORY: Elevated D-dimer TECHNIQUE: CTA chest with intravenous contrast. PE protocol. Multiplanar images were provided with MIP images and 3-D reconstructions. COMPARISON: 11/26/2019 FINDINGS: No pulmonary arterial thromboembolism is identified. Thoracic aorta is unremarkable. Mi ld cardiomegaly. No mediastinal lymphadenopathy. Excessive respiratory motion. There is mild hazin ess throughout the lungs for which interstitial edema, interstitial pneumonitis or respiratory motion artifact can be considered. There is a degree of contrast enhanced blood product reflux into the he patic veins possibly indicating some degree of heart strain. Correlate clinically. There is no pleu ral fluid or pneumothorax. Bones reveal bridging osteophytic spurring of the spine. IMPRESSION: 1. No pulmonary arterial thromboembolism is identified. 2. Mild cardiomegaly. 3. There is mild haziness throughout the lungs for which interstitial edema, interstitial pneumoniti s or respiratory motion artifact can be considered. There is a degree of contrast enhanced blood pro duct reflux into the hepatic veins possibly indicating some degree of heart strain. Correlate clinic ally. - - - - - All CT scans are performed using dose optimization techniques as appropriate to the performed exam an d include at least one of the following: Automated exposure control, adjustment of the mA and/or kV according t o size, and the use of iterative reconstruction technique.
[2022-07-20] MEDS: SODIUM CHLORIDE 1,000 ML IV SCH ×2 (04:13→11:38)
[2022-07-20] MEDS: MORPHINE 4 MG/ML SYRINGE IVP PRN (04:17)
[2022-07-20 05:26] LABS: BASOPHILS % (AUTO) 0.5 % (0.0-3.0); EOSINOPHILS # (AUTO) 0.1 K/ul (0.0-0.7); EOSINOPHILS % (AUTO) 1.2 % (0.0-7.0); HEMATOCRIT 38.4 % (37.0-47.0); IMMATURE GRANULOCYTE % (AUTO) 0.3 % (0.0-5.0); LYMPHOCYTES # (AUTO) 2.1 K/uL (0.60-3.4); LYMPHOCYTES % (AUTO) 32.3 (10.0-50.0); MEAN CORPUSCULAR HEMOGLOBIN 32.9 pg (27.0-31.0); MEAN CORPUSCULAR HGB CONC 33.9 (31.8-35.4); MEAN CORPUSCULAR VOLUME 97.2 fl (81.0-99.0); MONOCYTES # (AUTO) 0.7 K/uL (0.4-2.0); MONOCYTES % (AUTO) 10.1 (0-10); NEUTROPHILS # (AUTO) 3.6 K/ul (2.0-6.9); NEUTROPHILS % (AUTO) 55.6 % (42.2-75.2); PLATELET COUNT 211 10^3/uL (140-440); RDW COEFFICIENT OF VARIATION 11.8 % (11.6-14.8); RED BLOOD COUNT 3.95 10^6/ul (4.20-5.40); WHITE BLOOD COUNT 6.51 K/ul (4.6-10.2)
[2022-07-20 05:39] LABS: ALANINE AMINOTRANSFERASE 28.3 U/L (0-35); ALBUMIN 3.92 g/dL (3.5-5.0); ALKALINE PHOSPHATASE 130.2 U/L (38-126); ASPARTATE AMINO TRANSFERASE 28.3 U/L (14-36); BILIRUBIN,TOTAL 0.43 mg/dL (0.2-1.3); BLOOD UREA NITROGEN 15.3 mg/dL (7-17); CALCIUM 8.45 mg/dL (8.4-10.2); CARBON DIOXIDE 29.4 mmol/L (22-30.0); CHLORIDE 105.7 mmol/L (98-107); CREATININE 0.64 mg/dL (0.60-1.30); GLUCOSE 100.1 mg/dL (74-106); POTASSIUM 4.08 mmol/L (3.5-5.1); SODIUM 139.6 mmol/L (134.5-145); TOTAL PROTEIN 6.95 g/dL (6.3-8.2)
[2022-07-20] MEDS: CHLORTHALIDONE PO SCH (08:23)
[2022-07-20] MEDS: ZESTRIL PO SCH (08:23)
[2022-07-20] MEDS: CYMBALTA PO SCH (08:23)
[2022-07-20 10:55] VITALS: BP 167/81; TEMP 97.4
[2022-07-20] MEDS ORDERED: PROTONIX PO SCH (11:20)
--- NOTE | 2022-07-20 13:21 | PCM.DC ---
Final Diagnosis: abdominal pain Physical Exam Appearance: Well-appearing Ill-appearing: None Pain Distress: Mild Eyes: Conjunctiva clear ENT: Oropharynx normal Neck: Supple Respiratory: Airway patent Cardiovascular: RRR GI/: Soft and Tender (no rebound) Musculoskeletal: ROM intact Skin: Normal color Neurological: Alert and Oriented Psychiatric: Affect appropriate (1) RUQ abdominal pain: Status: Acute Code(s): R10.11 - Right upper quadrant pain SNOMED Code(s): 922807315 Reason for Hospitalization: abdominal pain Prognosis/Condition at Discharge: stable Medications at Discharge: home meds Lab/Diagnostics: per Rad: cta chest no PE, u/s abdomen no cholecystitis, ct abd no obstruction or free air Education Provided to Patient and Family: antacid treatment of gerd Follow-ups: see your doctor Discharge Disposition: AMA Hospital Course: pt improved, asked for less pain med, but left ama before etiology of abdominal pain could be ascertained Plan: see your doctor
== END 2022-07-20 13:06 | disposition left against medical advice (07) ==
LOC: MEDSURG A 18:19 → ED 18:19 → MEDSURG A 22:15
PROVIDERS: ADMIT Surgery; ATTEND Emergency Medicine Emergency Medical Services
DX: G47.39 Other sleep apnea; E66.9 Obesity, unspecified; M06.9 Rheumatoid arthritis, unspecified; Z68.35 Body mass index [BMI] 35.0-35.9, adult; R10.11 Right upper quadrant pain; I10 Essential (primary) hypertension; Z51.81 Encounter for therapeutic drug level monitoring; Z79.899 Other long term (current) drug therapy; Z20.822 Contact with and (suspected) exposure to COVID-19; K21.9 Gastro-esophageal reflux disease without esophagitis; M79.7 Fibromyalgia; E03.9 Hypothyroidism, unspecified